=== PATIENT | female | born 1970 | race Caucasian/White ===

== ENCOUNTER 2016-11-19 13:44 | Emergency (ER) | payer OTHER, BC ==
[2016-11-19 13:51] VITALS: BP 99/86
--- NOTE | 2016-11-19 14:14 | EDM.PDOC ---
{null, ED HPI GENERAL MEDICAL PROBLEM - General Chief Complaint: Back Pain or Injury Stated Complaint: WORK COMP / LOW BACK Time Seen by Provider: 11/19/16 14:00 Source of Information: Reports: Patient History Limitations: Reports: No Limitations - History of Present Illness INITIAL COMMENTS - FREE TEXT/NARRATIVE: patient comes emergency Department today with complaints of chronic back pain. She has been on the chronic pain management contract with a prescriber of [place] for the past couple of years for her chronic back pain that she has had since an injury at work in 2008. She has had some increased pain over the past couple of days. Her morphine 15 mg twice a day is not controlling her pain. She denies any injuries falls or acute episode worsening her pain. She states that the morphine this does not work as it has in the past. She denies any new numbness or tingling to her lower extremities. She denies any loss of bowel or bladder problems. She relates that her morphine prescription was refilled last week with her primary provider. Lower Back Pain Score (Numeric/FACES): 10 - Related Data Allergies Allergy/AdvReac Type Severity Reaction Status Date / Time acetaminophen [From Roxicet] Allergy Hives Verified 11/19/16 13:54 oxycodone HCl [From Roxicet] Allergy Hives Verified 11/19/16 13:54 prednisone Allergy Nausea and Verified 11/19/16 13:54 Vomiting propoxyphene napsylate Allergy Hives Verified 11/19/16 13:54 [From Darvocet-N 100] Sulfa (Sulfonamide Allergy Swelling Verified 11/19/16 13:54 Antibiotics) Home Meds: Home Meds Omeprazole [Prilosec] 20 mg PO DAILY 07/21/13 [History] PARoxetine [Paxil] 40 mg PO DAILY 07/21/13 [History] Acetaminophen [Tylenol Extra Strength] 1,000 mg PO Q4H PRN 09/14/13 [History] Morphine Sulfate 15 mg PO BID 11/19/16 [History] Past Medical History HEENT History: Reports: None Cardiovascular History: Reports: None Respiratory History: Reports: None Gastrointestinal History: Reports: GERD Genitourinary History: Reports: None 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 Musculoskeletal History: Reports: Back Pain, Chronic Neurological History: Reports: None Psychiatric History: Reports: Anxiety, Depression Endocrine/Metabolic History: Reports: None Hematologic History: Reports: None Immunologic History: Reports: None Oncologic (Cancer) History: Reports: None Dermatologic History: Reports: None - Infectious Disease History Infectious Disease History: Reports: None - Past Surgical History Head Surgeries/Procedures: Reports: None Social & Family History - Family History Family Medical History: Noncontributory - Tobacco Use Smoking Status *Q: Never Smoker Second Hand Smoke Exposure: No - Caffeine Use Caffeine Use: Reports: Coffee, Soda - Alcohol Use Days Per Week of Alcohol Use: 0 - Recreational Drug Use Recreational Drug Use: No - Living Situation & Occupation Living situation: Reports: ED ROS GENERAL - Review of Systems Review Of Systems: ROS reveals no pertinent complaints other than HPI. ED EXAM, UPPER BACK/NECK PAIN - Physical Exam Exam: See Below Exam Limited By: No Limitations General Appearance: Alert, WD/WN, No Apparent Distress Head Exam: Atraumatic, Normocephalic Neck Exam: Non-Tender, Full Range of Motion, Normal Alignment Cardiovascular/Respiratory: Regular Rate, Rhythm, No M/R/G, Normal Peripheral Pulses, Normal Breath Sounds, No Respiratory Distress GI/Abdominal: Normal Bowel Sounds, Soft, Non-Tender (Female) Exam: Deferred Rectal (Female) Exam: Deferred Extremities: Normal Inspection, Normal Range of Motion, Non-Tender, No Pedal Edema, Normal Capillary Refill Neurologic: No Motor/Sensory Deficits, Alert, Normal Mood/Affect, Oriented x 3 DTR: 2+: Patella (R), Patella (L), Achilles (R), Achilles (L) Psychiatric: Normal Affect, Normal Mood Skin Exam: Normal Color, Warm/Dry Course - Vital Signs Last Recorded V/S: Last Vital Signs Temp 35.8 C 11/19/16 13:50 Pulse 70 11/19/16 13:50 Resp 16 11/19/16 13:50 BP 99/86 11/19/16 13:50 Pulse Ox 98 11/19/16 13:50 - Re-Assessments/Exams Free Text/Narrative Re-Assessment/Exam: 11/19/16 14:29 as the patient admitted herself that she is in a chronic pain management contract out of [place] in that she is no acute injury I explained to her that in the acute setting in the emergency department we do not treat chronic pain. Especially with the current concerns over the overprescribing and misuse of narcotics in our region I do not feel that it is appropriate that I override her chronic pain contract and give her anything more for pain as she is complaining of worsening chronic pain without any acute injury or identifiable cause. I did review her PDMP for the state [facility] but it is quite clear that on a monthly basis she receives 60 tablets of morphine sulfate 15 mg by prescriber primarily in [place]. Her last filled prescription is 10/11/16 which was 60 tablets of morphine. She does tell me verbally that she received the identical prescription last week that she filled at her pharmacy here in [facility]. I did offer the patient non-narcotic medication such as Tylenol ibuprofen Toradol at this time for which she refused. She can try other nonpharmacologic means for her chronic pain management at home and she is to contact her primary pain management doctor on Sunday. She was understanding of this. Discharge instructions as below were explained to the patient she was comfortable with this plan and her questions are answered. Departure - Departure Time of Disposition: 14:00 Disposition: Home, Self-Care 01 Clinical Impression: Chronic pain syndrome Chronic back pain Qualifiers: Back pain location: low back pain Back pain laterality: unspecified Sciatica presence: unspecified whether sciatica present Qualified Code(s): M54.5 - Low back pain - Discharge Information Instructions: Chronic Back Pain Forms: ED Department Discharge Additional Instructions: Contact your chronic pain medicine provider on sunday to treat your chronic back pain. Return to the ED if acute or emergent conditions. Tylenol Ibuprofen Ice Heat stretches or other remidies that have worked for you in the past for your chronic pain. - Assessment/Plan Assessment:: Chronic back pain, with no acute injury. Chronic pain syndrome. Plan: Contact your chronic pain medicine provider on sunday to treat your chronic back pain. Return to the ED if acute or emergent conditions. Tylenol Ibuprofen Ice Heat stretches or other remidies that have worked for you in the past for your chronic pain. }
== END 2016-11-19 14:18 | disposition home or self-care (01) ==
LOC: DL.ED 13:44
DX: G89.4 Chronic pain syndrome (principal); M54.5 Low back pain; K21.9 Gastro-esophageal reflux disease without esophagitis; F41.9 Anxiety disorder, unspecified; F32.9 Major depressive disorder, single episode, unspecified; Z79.899 Other long term (current) drug therapy; Z88.6 Allergy status to analgesic agent; Z88.2 Allergy status to sulfonamides
CPT/HCPCS: 99283

== ENCOUNTER 2019-08-11 08:59 | Emergency (ER) | payer BC ==
--- NOTE | 2019-08-11 09:27 | EDM.PDOC ---
<Bang Zamora - Last Filed: 08/11/19 14:39> ED HPI GENERAL MEDICAL PROBLEM - General Chief Complaint: Chest Pain Stated Complaint: CHEST PAINS Time Seen by Provider: 08/11/19 09:22 Source of Information: Reports: Patient, RN, RN Notes Reviewed History Limitations: Reports: No Limitations - History of Present Illness INITIAL COMMENTS - FREE TEXT/NARRATIVE: states for the past 3 weeks to 1 month she has had mid-sternal chest pains. Had a stress test 2 weeks ago which was positive and "they found 3 spots in my heart that they think may be blockage." She is set up for an angiogram on the . States yesterday afternoon her chest pain got worse. States her was unable to give her ride here yesterday. Today she drove herself here. States she slept very little last night due to pain. Denies cold, cough, or recent illness. Movement makes discomfort worse. The pain is constant and does not relieve with rest. Patient states that her family has history of cardiac events. Her sister has a heart murmur, her uncle had a heart attack at 45 and , and her father had open heart surgery due to blockages at age of 60s-70s. Onset: Other (3-4 weeks ongoing) Duration: Constant Location: Reports: Chest Quality: Reports: Ache, Sharp Severity: Moderate Improves with: Reports: None Worsens with: Reports: None Associated Symptoms: Reports: Chest Pain, Shortness of Breath. Denies: Confusion, Cough, Diaphoresis, Fever/Chills, Headaches, Loss of Appetite, Nausea /Vomiting, Syncope - Related Data Allergies Allergy/AdvReac Type Severity Reaction Status Date / Time acetaminophen [From Roxicet] Allergy Hives Verified 11/19/16 13:54 oxycodone HCl [From Roxicet] Allergy Hives Verified 11/19/16 13:54 prednisone Allergy Nausea and Verified 11/19/16 13:54 Vomiting propoxyphene napsylate Allergy Hives Verified 11/19/16 13:54 [From Darvocet-N 100] Sulfa (Sulfonamide Allergy Swelling Verified 11/19/16 13:54 Antibiotics) Home Meds: Home Meds Omeprazole [Prilosec] 20 mg PO DAILY 07/21/13 [History] PARoxetine [Paxil] 40 mg PO DAILY 07/21/13 [History] Acetaminophen [Tylenol Extra Strength] 1,000 mg PO Q4H PRN 09/14/13 [History] metFORMIN HCl [Metformin HCl] 500 mg PO DAILY 08/11/19 [History] traZODone HCl [Trazodone HCl] 200 mg PO BEDTIME 08/11/19 [History] Past Medical History HEENT History: Reports: None Cardiovascular History: Reports: None Respiratory History: Reports: None Gastrointestinal History: Reports: GERD Genitourinary History: Reports: None 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 Musculoskeletal History: Reports: Back Pain, Chronic Neurological History: Reports: None Psychiatric History: Reports: Anxiety, Depression Endocrine/Metabolic History: Reports: None Hematologic History: Reports: None Immunologic History: Reports: None Oncologic (Cancer) History: Reports: None Dermatologic History: Reports: None - Infectious Disease History Infectious Disease History: Reports: None - Past Surgical History Head Surgeries/Procedures: Reports: None Social & Family History - Family History Family Medical History: Noncontributory - Caffeine Use Caffeine Use: Reports: Coffee, Soda - Living Situation & Occupation Living situation: Reports: ED ROS GENERAL - Review of Systems Review Of Systems: See Below Constitutional: Denies: Fever, Chills, Weakness, Fatigue Respiratory: Reports: Shortness of Breath. Denies: Wheezing, Cough, Sputum Cardiovascular: Reports: Chest Pain, Dyspnea on Exertion. Denies: Lightheadedness, Palpitations, Syncope Endocrine: Reports: No Symptoms GI/Abdominal: Denies: Abdominal Pain, Anorexia, Constipation, Diarrhea, Difficulty Swallowing, Nausea, Vomiting : Reports: No Symptoms Musculoskeletal: Reports: No Symptoms Skin: Reports: No Symptoms Neurological: Reports: No Symptoms Psychiatric: Reports: No Symptoms ED EXAM, GENERAL - Physical Exam Exam: See Below Exam Limited By: No Limitations General Appearance: Alert, WD/WN, Mild Distress Head: Atraumatic, Normocephalic Neck: Normal Inspection, Supple, Non-Tender, Full Range of Motion Respiratory/Chest: No Respiratory Distress, Lungs Clear, Normal Breath Sounds, No Accessory Muscle Use, Chest Non-Tender Cardiovascular: Normal Peripheral Pulses, Regular Rate, Rhythm, No Edema, No Gallop, No JVD, No Murmur, No Rub GI/Abdominal: Normal Bowel Sounds (Female) Exam: Deferred Rectal (Female) Exam: Deferred Extremities: Normal Inspection, Normal Range of Motion, Non-Tender, Normal Capillary Refill, No Pedal Edema Neurological: Alert, Oriented, CN II-XII Intact, Normal Cognition, Normal Gait, Normal Reflexes, No Motor/Sensory Deficits Psychiatric: Normal Affect, Normal Mood Skin Exam: Warm, Dry, Intact, Normal Color, No Rash Course - Vital Signs Last Recorded V/S: Last Vital Signs Temp 97 F 08/11/19 09:00 Pulse 89 08/11/19 12:50 Resp 18 08/11/19 09:00 BP 132/65 08/11/19 12:50 Pulse Ox 96 08/11/19 09:00 - Orders/Labs/Meds Orders: Active Orders 24 hr Category Date Time Status EKG 12 Lead [EKG Documentation Completion] [RC] STAT Care 08/11/19 09:06 Active EKG 12 Lead [EKG Documentation Completion] [RC] STAT Care 08/11/19 12:34 Active EKG Documentation Completion [RC] ROUTINE Care 08/11/19 13:30 Inactive Labs: Laboratory Tests 08/11/19 08/11/19 08/11/19 Range/Units 09:28 09:28 09:28 WBC 5.8 (5.0-10.0) 10^3/uL RBC 3.97 L (4.2-5.4) 10^6/uL Hgb 12.4 (12.0-16.0) g/dL Hct 37.1 (37.0-47.0) % MCV 93.5 D (80-100) fL MCH 31.2 (27.0-34.0) pg MCHC 33.4 (33.0-35.0) g/dL Plt Count 284 (150-450) 10^3/uL Neut % (Auto) 63.1 (42.2-75.2) % Lymph % (Auto) 27.0 (20.5-50.1) % Shelby % (Auto) 8.2 H (2-8) % Eos % (Auto) 1.2 (1.0-3.0) % Baso % (Auto) 0.5 (0.0-1.0) % D-Dimer, Quantitative < 100 (0-400) ng/mL Sodium 138 (135-145) mmol/L Potassium 4.1 (3.6-5.0) mmol/L Chloride 102 (101-111) mmol/L Carbon Dioxide 24.0 (21.0-31.0) mmol/L Anion Gap 16.1 BUN 14 (7-18) mg/dL Creatinine 0.7 (0.6-1.3) mg/dL Est Cr Clr Drug Dosing 88.44 mL/min Estimated GFR (MDRD) > 60 BUN/Creatinine Ratio 20.00 Glucose 156 H (74-105) mg/dL Calcium 9.4 (8.4-10.2) mg/dl Total Bilirubin 0.7 (0.2-1.0) mg/dL AST 32 (10-42) IU/L ALT 52 (10-60) IU/L Alkaline Phosphatase 47 (42-121) IU/L Troponin I < 0.02 (0.00-0.02) ng/ml Total Protein 7.3 (6.7-8.2) g/dl Albumin 4.3 (3.2-5.5) g/dl Globulin 3.0 Albumin/Globulin Ratio 1.43 08/11/19 Range/Units 13:30 WBC (5.0-10.0) 10^3/uL RBC (4.2-5.4) 10^6/uL Hgb (12.0-16.0) g/dL Hct (37.0-47.0) % MCV (80-100) fL MCH (27.0-34.0) pg MCHC (33.0-35.0) g/dL Plt Count (150-450) 10^3/uL Neut % (Auto) (42.2-75.2) % Lymph % (Auto) (20.5-50.1) % Shelby % (Auto) (2-8) % Eos % (Auto) (1.0-3.0) % Baso % (Auto) (0.0-1.0) % D-Dimer, Quantitative (0-400) ng/mL Sodium (135-145) mmol/L Potassium (3.6-5.0) mmol/L Chloride (101-111) mmol/L Carbon Dioxide (21.0-31.0) mmol/L Anion Gap BUN (7-18) mg/dL Creatinine (0.6-1.3) mg/dL Est Cr Clr Drug Dosing mL/min Estimated GFR (MDRD) BUN/Creatinine Ratio Glucose (74-105) mg/dL Calcium (8.4-10.2) mg/dl Total Bilirubin (0.2-1.0) mg/dL AST (10-42) IU/L ALT (10-60) IU/L Alkaline Phosphatase (42-121) IU/L Troponin I 0.03 H* (0.00-0.02) ng/ml Total Protein (6.7-8.2) g/dl Albumin (3.2-5.5) g/dl Globulin Albumin/Globulin Ratio Meds: Medications Discontinued Medications Generic Name Dose Route Start Last Admin Trade Name Freq PRN Reason Stop Dose Admin Acetaminophen 650 mg 08/11/19 12:55 08/11/19 13:04 Tylenol PO 08/11/19 12:56 Not Given NOW ONE Al Hydroxide/Mg Hydroxide 30 ml 08/11/19 12:55 08/11/19 13:05 Gi Cocktail PO 08/11/19 12:56 30 ml ONETIME ONE Administration Aspirin 324 mg 08/11/19 09:41 08/11/19 09:45 Aspirin PO 08/11/19 09:42 324 mg ONETIME ONE Administration Nitroglycerin 0.4 mg 08/11/19 12:33 08/11/19 12:42 Nitrostat SL 08/11/19 12:34 0.4 mg ONETIME ONE Administration Departure - Departure Time of Disposition: 14:39 Disposition: Home, Self-Care 01 Condition: Good Clinical Impression: Atypical chest pain Instructions: Nonspecific Chest Pain, [id number] Forms: ED Department Discharge Additional Instructions: Rx: Pepcid 20mg (Take in addition to Prilosec). Follow-up with Dr. Swann as scheduled for further cardiac testing. If symptoms come back or worsen, follow-up sooner or return to the ED for evaluation. Sepsis Event Note - Evaluation Sepsis Screening Result: No Definite Risk - Focused Exam Vital Signs: Vital Signs Temp Pulse Resp BP BP Pulse Ox 08/11/19 12:50 89 132/65 08/11/19 12:42 124/60 08/11/19 09:00 97 F 83 18 95/81 96 Date Exam was Performed: 08/11/19 Time Exam was Performed: 14:39 - My Orders Last 24 Hours: My Active Orders 08/11/19 09:06 EKG 12 Lead [EKG Documentation Completion] [RC] STAT 08/11/19 12:34 EKG 12 Lead [EKG Documentation Completion] [RC] STAT 08/11/19 13:30 EKG Documentation Completion [RC] ROUTINE - Assessment/Plan Last 24 Hours: My Active Orders 08/11/19 09:06 EKG 12 Lead [EKG Documentation Completion] [RC] STAT 08/11/19 12:34 EKG 12 Lead [EKG Documentation Completion] [RC] STAT 08/11/19 13:30 EKG Documentation Completion [RC] ROUTINE <Thai Nathanian - Last Filed: 08/11/19 14:47> Past Medical History Endocrine/Metabolic History: Reports: Diabetes, Type II, Obesity/BMI 30+ Social & Family History - Family History Cardiac: Reports: CAD, Heart Murmur, Hypertension, [place] EKG INTERPRETATION EKG Date: 08/11/19 Time: 09:16 Rhythm: Other (SR) [place]: Normal P-Wave: Present QRS: Normal ST-T: Other (Nonspecific T wave inversion in V1) QT: Normal Comparison: NA - No Prior EKG Course - Radiology Interpretation Free Text/Narrative:: [facility] [place] [facility] Final Radiology Report Call: [phone] assistance Online chat: [email or web address] Name: BHAVANI JACKSON Age: 48Years F Date: 08/11/2019 SSN: -- : [id number] Study: XR CHEST 1 VIEW FRONTAL Requesting Physician: THAI NTAHAN Images: 1 Addl Studies: Provided Clinical History: chest pain Contrast: Contrast Medium: Contrast Amount: Contrast Method: CONFIDENTIALITY STATEMENT This report is intended only for use by the referring physician, and only in accordance with law. If you received this in error, call [phone]. Page 1 of 1 PROCEDURE INFORMATION: Exam: XR Chest, 1 View Exam date and time: 08/11/2019 9:31 AM Age: 48 years old Clinical indication: Chest pain; Type not specified TECHNIQUE: Imaging protocol: XR of the chest Views: 1 view. COMPARISON: No relevant prior studies available. FINDINGS: Lungs: Unremarkable. No consolidation. Pleural space: Unremarkable. No pleural effusion. No pneumothorax. Heart/Mediastinum: Unremarkable. No cardiomegaly. Bones/joints: Unremarkable. IMPRESSION: No evidence for acute pulmonary disease. Thank you for allowing us to participate in the care of your patient. Dictated and Authenticated by: Sarbjit Apodaca MD 08/11/2019 10:13 AM Central Time ([place] & [place]) - Re-Assessments/Exams Free Text/Narrative Re-Assessment/Exam: 08/11/19 I personally performed or re-performed the physical examination and medical decision making. I have verified all student documentation or findings, including history, physical exam and/or medical decision making. Free Text/Narrative Re-Assessment/Exam: 08/11/19 10:17 Pt with negative initial CP evaluation, but with abnormal cardiac stress test 3 weeks ago and elective cardiac cath. scheduled for about 2 weeks from now. Hx DM , obesity, and family Hx of CAD. Pt will be placed as an extended ER status on telemetry with a repeat troponin and EKG four hours from the initial lab and EKG. 08/11/19 14:[address] Swann (cardiology) via [employer]. He advises the pt's stress test was likely negative, but due to a few areas that are most likely technical issues, it calls into question a weak positive study. Therefore she is scheduled for an elective angiogram. After review of today's exam, lab results and EKGs Dr. Swann advises the pt may be discharged home with reassurance that it is ok to keep her angiogram appointment as scheduled. Sepsis Event Note - Focused Exam Date Exam was Performed: 08/11/19 Time Exam was Performed: 14:42
[2019-08-11] MEDS ORDERED: Aspirin 81 MG Tab.Chew PO ONE (09:41)
[2019-08-11 09:56] LABS: ANION GAP 16.1; CHLORIDE,CL 102 mmol/L (101-111); SODIUM,NA 138 mmol/L (135-145)
[2019-08-11] MEDS ORDERED: Nitroglycerin 0.4 MG Tab.SL SL ONE (12:33)
[2019-08-11 12:51] VITALS: BP 132/65; PULSE 89
[2019-08-11] MEDS ORDERED: Acetaminophen 325 MG Tab PO ONE (12:55)
[2019-08-11] MEDS ORDERED: GI Cocktail Oral Solution 30 ML PO ONE (12:55)
== END 2019-08-11 14:56 | disposition home or self-care (01) ==
LOC: DL.ED 08:59
DX: R07.89 Other chest pain (principal); E11.9 Type 2 diabetes mellitus without complications; E66.9 Obesity, unspecified; K21.9 Gastro-esophageal reflux disease without esophagitis; F41.9 Anxiety disorder, unspecified; F32.9 Major depressive disorder, single episode, unspecified; Z88.2 Allergy status to sulfonamides; Z88.8 Allergy status to other drugs, medicaments and biological substances; Z79.899 Other long term (current) drug therapy; Z79.84 Long term (current) use of oral hypoglycemic drugs
CPT/HCPCS: 36415; 71045; 80053; 84484; 85025; 85379; 93005; 99285; A9270

== ENCOUNTER 2019-09-30 09:56 | Emergency (ER) | payer BC ==
[2019-09-30 10:06] VITALS: BP 146/77; PULSE 78
--- NOTE | 2019-09-30 10:09 | EDM.PDOC ---
ED HPI GENERAL MEDICAL PROBLEM - General Chief Complaint: Laceration Stated Complaint: CUT FINGER LEFT HAND Time Seen by Provider: 09/30/19 10:05 Source of Information: Reports: Patient, Old Records, RN, RN Notes Reviewed History Limitations: Reports: No Limitations - History of Present Illness INITIAL COMMENTS - FREE TEXT/NARRATIVE: Pt presents to ER with c/o laceration to left thumb with a kitchen knife just prior to arrival. Denies any other injury. Tetanus vaccine is up to date. Onset: Today, Sudden Duration: Constant Location: Reports: Upper Extremity, Left Quality: Reports: Ache Severity: Moderate Improves with: Reports: None Worsens with: Reports: None Associated Symptoms: Reports: No Other Symptoms Left Pain Score (Numeric/FACES): 2 - Related Data Allergies Allergy/AdvReac Type Severity Reaction Status Date / Time acetaminophen [From Roxicet] Allergy Hives Verified 09/30/19 10:09 oxycodone HCl [From Roxicet] Allergy Hives Verified 09/30/19 10:09 prednisone Allergy Nausea and Verified 09/30/19 10:09 Vomiting propoxyphene napsylate Allergy Hives Verified 09/30/19 10:09 [From Darvocet-N 100] Sulfa (Sulfonamide Allergy Swelling Verified 09/30/19 10:09 Antibiotics) Home Meds: Home Meds Omeprazole [Prilosec] 20 mg PO DAILY 07/21/13 [History] PARoxetine [Paxil] 40 mg PO DAILY 07/21/13 [History] Acetaminophen [Tylenol Extra Strength] 1,000 mg PO Q4H PRN 09/14/13 [History] metFORMIN HCl [Metformin HCl] 500 mg PO DAILY 08/11/19 [History] traZODone HCl [Trazodone HCl] 200 mg PO BEDTIME 08/11/19 [History] Past Medical History HEENT History: Reports: None Cardiovascular History: Reports: None Respiratory History: Reports: None Gastrointestinal History: Reports: GERD Genitourinary History: Reports: None 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 Musculoskeletal History: Reports: Back Pain, Chronic Neurological History: Reports: None Psychiatric History: Reports: Anxiety, Depression Endocrine/Metabolic History: Reports: Diabetes, Type II, Obesity/BMI 30+ Hematologic History: Reports: None Immunologic History: Reports: None Oncologic (Cancer) History: Reports: None Dermatologic History: Reports: None - Infectious Disease History Infectious Disease History: Reports: None - Past Surgical History Head Surgeries/Procedures: Reports: None Social & Family History - Family History Family Medical History: Noncontributory Cardiac: Reports: CAD, Heart Murmur, Hypertension, [place] - Caffeine Use Caffeine Use: Reports: Coffee, Soda - Living Situation & Occupation Living situation: Reports: ED ROS GENERAL - Review of Systems Review Of Systems: Comprehensive ROS is negative, except as noted in HPI. ED EXAM, SKIN/RASH Exam: See Below Exam Limited By: No Limitations General Appearance: Alert, WD/WN, No Apparent Distress, Obese Respiratory/Chest: No Respiratory Distress Cardiovascular: Normal Peripheral Pulses Extremities: Normal Range of Motion, Normal Capillary Refill, Other (0.6cm laceration to depth of subcutaneous tissue at left thumb, no active bleeding, no FB, no tendon injury.) Neurological: Alert, Oriented, No Motor/Sensory Deficits Psychiatric: Normal Mood Skin: Warm, Dry, Normal Color ED SKIN PROCEDURES - Laceration/Wound Repair Left Digit - 1st (Thumb) Appearance: Subcutaneous Distal NVT: Neuro & Vascular Intact, No Tendon Injury Anesthetic Type: Local Local Anesthesia - Lidocaine (Xylocaine): 1% Plain Local Anesthetic Volume: 5cc Skin Prep: Chlorhexidine (Hibiciens), Saline, Sterile Drape Saline Irrigation (cc's): 100 Exploration/Debridement/Repair: Wound Explored, In a Bloodless Field, Explored to Base, Minimal Debridement, Minimally Undermined Closed with: Sutures Lac/Wound length In cm: 0.6 Suture Size: 4-0 # of Sutures: 3 Drain Placement: No Sterile Dressing Applied: Nurse Tetanus Status Addressed: Yes Complications: No Course - Vital Signs Last Recorded V/S: Last Vital Signs Temp 95.9 F L 09/30/19 10:05 Pulse 78 09/30/19 10:05 Resp 20 09/30/19 10:05 BP 146/77 H 09/30/19 10:05 Pulse Ox 95 09/30/19 10:05 - Orders/Labs/Meds Meds: Medications Discontinued Medications Generic Name Dose Route Start Last Admin Trade Name Freq PRN Reason Stop Dose Admin Bacitracin 1 dose 09/30/19 10:10 Bacitracin Oint 1 Gm TOP 09/30/19 10:11 ONETIME ONE Lidocaine HCl 30 ml 09/30/19 10:10 Xylocaine-Mpf 1% INJECT 09/30/19 10:11 ONETIME ONE Departure - Departure Time of Disposition: 10:26 Disposition: Home, Self-Care 01 Condition: Good Clinical Impression: Laceration of left thumb Qualifiers: Encounter type: initial encounter Damage to nail status: without damage Foreign body presence: without foreign body Qualified Code(s): S61.012A - Laceration without foreign body of left thumb without damage to nail, initial encounter - Discharge Information *PRESCRIPTION DRUG MONITORING PROGRAM REVIEWED*: Not Applicable *COPY OF PRESCRIPTION DRUG MONITORING REPORT IN PATIENT TIANNA: Not Applicable Instructions: Laceration Care, Adult Forms: ED Department Discharge Additional Instructions: Keep laceration site at left thumb clean and dry. Follow up in clinic in 7 to 10 days for suture removal. Sepsis Event Note - Focused Exam Vital Signs: Vital Signs Temp Pulse Resp BP Pulse Ox 09/30/19 10:05 95.9 F L 78 20 146/77 H 95 Date Exam was Performed: 09/30/19 Time Exam was Performed: 10:26
[2019-09-30] MEDS ORDERED: Lidocaine 1% 30 ML SDV INJECT ONE (10:10)
[2019-09-30] MEDS ORDERED: Bacitracin Oint 1 GM U/D Packet TOP ONE (10:10)
== END 2019-09-30 10:32 | disposition home or self-care (01) ==
LOC: DL.ED 09:56
DX: S61.012A Laceration without foreign body of left thumb without damage to nail, initial encounter (principal); K21.9 Gastro-esophageal reflux disease without esophagitis; F41.9 Anxiety disorder, unspecified; F32.9 Major depressive disorder, single episode, unspecified; E11.9 Type 2 diabetes mellitus without complications; E66.9 Obesity, unspecified; Z68.33 Body mass index [BMI] 33.0-33.9, adult; Z88.8 Allergy status to other drugs, medicaments and biological substances; Z88.5 Allergy status to narcotic agent; Z88.2 Allergy status to sulfonamides; Z79.84 Long term (current) use of oral hypoglycemic drugs; Z79.899 Other long term (current) drug therapy; W26.0XXA Contact with knife, initial encounter
CPT/HCPCS: 12001; 99282; J2001

== ENCOUNTER 2020-01-15 10:32 | Emergency (ER) | payer BC ==
[2020-01-15 10:44] VITALS: BP 140/72; PULSE 76
[2020-01-15] MEDS ORDERED: Sodium Chloride 0.9% 1,000 ML IV ONE (11:06)
[2020-01-15] MEDS ORDERED: Ketorolac 30 MG/ML SDV IVPUSH ONE (11:06)
[2020-01-15] MEDS ORDERED: Ondansetron 4 MG/2 ML SDV IVPUSH ONE (11:07)
[2020-01-15] MEDS ORDERED: diphenhydrAMINE 50 MG/ML SDV IVPUSH ONE (11:08)
--- NOTE | 2020-01-15 12:08 | EDM.PDOC ---
ED HPI GENERAL MEDICAL PROBLEM - General Chief Complaint: Headache Stated Complaint: CLINIC TOLD HER TO COME ER Time Seen by Provider: 01/15/20 11:00 - History of Present Illness INITIAL COMMENTS - FREE TEXT/NARRATIVE: 49 year old female who presents to the ER with complaints of generalized headache that began one day ago. Patient reports the headache came on suddenly. She admits to a history of headaches. She also admits neck pain since the onset of headache. She also have a history of neck pain. She denies any fever but admits to chills yesterday. She reports she is on antibiotics for left eye cellulitis. She has tried ibuprofen once for her headache with no relief. She reports photophobia and nausea but no vomiting. No change in neurology status. No history of stroke, head or trauma at this time. 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 Headache Pain Score (Numeric/FACES): 6 - Related Data Allergies Allergy/AdvReac Type Severity Reaction Status Date / Time acetaminophen [From Roxicet] Allergy Hives Verified 01/15/20 10:41 oxycodone HCl [From Roxicet] Allergy Hives Verified 01/15/20 10:41 prednisone Allergy Nausea and Verified 01/15/20 10:41 Vomiting propoxyphene napsylate Allergy Hives Verified 01/15/20 10:41 [From Darvocet-N 100] Sulfa (Sulfonamide Allergy Swelling Verified 01/15/20 10:41 Antibiotics) Home Meds: Home Meds Omeprazole [Prilosec] 20 mg PO DAILY 07/21/13 [History] PARoxetine [Paxil] 40 mg PO DAILY 07/21/13 [History] Acetaminophen [Tylenol Extra Strength] 1,000 mg PO Q4H PRN 09/14/13 [History] metFORMIN HCl [Metformin HCl] 500 mg PO DAILY 08/11/19 [History] traZODone HCl [Trazodone HCl] 200 mg PO BEDTIME 08/11/19 [History] Past Medical History HEENT History: Reports: Cataract Cardiovascular History: Reports: High Cholesterol Respiratory History: Reports: None Gastrointestinal History: Reports: GERD Genitourinary History: Reports: None 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 Musculoskeletal History: Reports: Back Pain, Chronic Neurological History: Reports: None Psychiatric History: Reports: Anxiety, Depression Endocrine/Metabolic History: Reports: Diabetes, Type II, Obesity/BMI 30+ Hematologic History: Reports: None Immunologic History: Reports: None Oncologic (Cancer) History: Reports: None Dermatologic History: Reports: None - Infectious Disease History Infectious Disease History: Reports: None - Past Surgical History Head Surgeries/Procedures: Reports: None Social & Family History - Family History Family Medical History: Noncontributory Cardiac: Reports: CAD, Heart Murmur, Hypertension, NM - Tobacco Use Smoking Status *Q: Never Smoker Second Hand Smoke Exposure: No - Caffeine Use Caffeine Use: Reports: None - Recreational Drug Use Recreational Drug Use: No - Living Situation & Occupation Living situation: Reports: ED ROS GENERAL - Review of Systems Review Of Systems: Comprehensive ROS is negative, except as noted in HPI. - Physical Exam Exam: See Below Exam Limited By: No Limitations General Appearance: Alert, Moderate Distress Eye Exam: Bilateral Eye: EOMI, PERRL Ears: Normal External Exam, Normal Canal, Hearing Grossly Normal, Normal TMs Nose: Normal Inspection, Normal Mucosa, No Blood Throat/Mouth: Normal Inspection, Normal Lips, Normal Teeth, Normal Gums, Normal Oropharynx, Normal Voice, No Airway Compromise Head Exam: Atraumatic, Normocephalic Neck: Normal Inspection, Supple, Non-Tender, Full Range of Motion. No: Tender Lateral, Tender Midline Respiratory/Chest: No Respiratory Distress, Lungs Clear, Normal Breath Sounds, No Accessory Muscle Use, Chest Non-Tender Cardiovascular: Normal Peripheral Pulses, Regular Rate, Rhythm, No Edema, No Gallop, No JVD, No Murmur, No Rub GI/Abdominal: Normal Bowel Sounds, Soft, Non-Tender, No Organomegaly, No Distention, No Abnormal Bruit, No Mass (Female) Exam: Deferred Rectal (Female) Exam: Deferred Neuro Exam (Abbreviated): Alert, Oriented, CN II-XII Intact, Normal Cognition, Normal Gait, No Motor/Sensory Deficits, Other (headaches) Extremities: Normal Inspection, Normal Range of Motion, Non-Tender, No Pedal Edema, Normal Capillary Refill Psychiatric: Anxious Skin Exam: Warm, Intact Course - Vital Signs Last Recorded V/S: Last Vital Signs Temp 96.4 F L 01/15/20 10:41 Pulse 76 01/15/20 10:41 Resp 14 01/15/20 10:41 BP 140/72 01/15/20 10:41 Pulse Ox 97 01/15/20 10:41 - Orders/Labs/Meds Meds: Medications Discontinued Medications Generic Name Dose Route Start Last Admin Trade Name Maryse PRN Reason Stop Dose Admin Diphenhydramine HCl 25 mg 01/15/20 11:08 01/15/20 11:16 Benadryl IVPUSH 01/15/20 11:09 25 mg ONETIME ONE Administration Sodium Chloride 1,000 mls @ 1,000 mls/hr 01/15/20 11:06 01/15/20 11:16 Normal Saline IV 01/15/20 12:05 1,000 mls/hr .BOLUS ONE Administration Ketorolac Tromethamine 30 mg 01/15/20 11:06 01/15/20 11:17 Toradol IVPUSH 01/15/20 11:07 30 mg ONETIME ONE Administration Ondansetron HCl 4 mg 01/15/20 11:07 01/15/20 11:17 Zofran IVPUSH 01/15/20 11:08 4 mg ONETIME ONE Administration - Re-Assessments/Exams Free Text/Narrative Re-Assessment/Exam: Patient presents to the ER with complaints of a headache. She was given a Migraine cocktail with significant relief. Follow up with PCP Departure - Departure Time of Disposition: 12:29 Disposition: Home, Self-Care 01 Condition: Fair Clinical Impression: Tension-type headache - Discharge Information Instructions: Tension Headache, Adult, [id number] Forms: ED Department Discharge Additional Instructions: Encouraged her to push fluids and rest. Avoid stressful situations Follow up with PCP. Sepsis Event Note (ED) - Evaluation Sepsis Screening Result: No Definite Risk - Focused Exam Vital Signs: Vital Signs Temp Pulse Resp BP Pulse Ox 01/15/20 10:41 96.4 F L 76 14 140/72 97
== END 2020-01-15 12:41 | disposition home or self-care (01) ==
LOC: DL.ED 10:32
DX: G44.209 Tension-type headache, unspecified, not intractable (principal); E11.9 Type 2 diabetes mellitus without complications; F41.9 Anxiety disorder, unspecified; F32.9 Major depressive disorder, single episode, unspecified; K21.9 Gastro-esophageal reflux disease without esophagitis; E66.9 Obesity, unspecified; Z68.27 Body mass index [BMI] 27.0-27.9, adult; Z88.5 Allergy status to narcotic agent; Z88.8 Allergy status to other drugs, medicaments and biological substances; Z88.2 Allergy status to sulfonamides; Z79.899 Other long term (current) drug therapy
CPT/HCPCS: 96374; 96375; 99283; J1200; J1885; J2405; J7030

== ENCOUNTER 2020-04-08 06:08 | Day surgery (SDC) | payer BC ==
[2020-04-08] MEDS ORDERED: Propofol 200 MG/20 ML SDV IV ONE ×2 (06:09)
[2020-04-08] MEDS ORDERED: Dextrose 5%-0.45% NaCl 1,000 ML IV SCH (06:45)
[2020-04-08] MEDS ORDERED: Sodium Chloride 0.9% 1,000 ML IV SCH (06:45)
[2020-04-08 09:49] VITALS: BP 91/51; PULSE 65
--- NOTE | 2020-04-08 10:33 | OR ---
DATE: 04/08/2020 PROCEDURE: Esophagogastroduodenoscopy and multiple pinch biopsies. INSTRUMENT USED: [id number]-HQ190 Olympus video panendoscope. PREMEDICATIONS: No oral or topical anesthesia used. Premedications provided by [facility]iology [facility]. INDICATION: The patient with persistent multiple abdominal symptoms, including chronic diarrhea, unexplained and not responsive to medical measures, on high- dose PPI. Esophagogastroduodenoscopy is performed for detection of any active erosive lesions, [place] esophagus and/or malignancy also under consideration, H pylori status to be determined, small bowel biopsies to be obtained for celiac disease, endoscopic hemostasis therapy if needed. PROCEDURE IN DETAIL: The scope was passed with ease. Adequate visualization of the esophagus was made from proximal to distal areas. No upper esophageal lesions identified. No distal esophageal stricture. No uphill or downhill esophageal varices. No T[place]a-Jackson tear. No evidence of erosive esophagitis by [place] criteria. No esophageal polyp or tumor mass identified. Z-line was seen at around 39 cm distal to the oral verge, configuration consistent with grade 1 by ZAP classification. No proximal gastric varices noted. Gastric fundus examination by retroflexion showed no polypoid lesions. No gastric ulcer, malignant mass, or vascular ectasia identified. Duodenal bulb showed no ulcer. Visualized second part of the duodenum was unremarkable. Multiple pinch biopsies, 4 in number, were taken from different areas of the second part of the duodenum and tissues were also obtained from the duodenal bulb at 9 and 12 o'clock positions and sent for any histopathologic evidence of celiac disease. Multiple pinch biopsies were also obtained from the gastric antrum and proximal body and sent for PyloriTek test for H pylori and histopathology. No bleeding was noted from any of the visualized areas at the completion of examination. Photographs were taken of the duodenal bulb, gastric antrum, fundus, and distal esophagus. IMPRESSION: Normal study. The patient tolerated the procedure well. [facility] /[id number]
== END 2020-04-08 09:55 | disposition home or self-care (01) ==
LOC: DL.ENDO 06:08
PROVIDERS: ATTEND Internal Medicine Gastroenterology
DX: K52.9 Noninfective gastroenteritis and colitis, unspecified (principal); K21.9 Gastro-esophageal reflux disease without esophagitis; E66.09 Other obesity due to excess calories; E11.9 Type 2 diabetes mellitus without complications; F32.9 Major depressive disorder, single episode, unspecified; Z79.899 Other long term (current) drug therapy; Z87.891 Personal history of nicotine dependence; Z68.32 Body mass index [BMI] 32.0-32.9, adult
CPT/HCPCS: 00813; 43239; 87077; J2704; J7030

== ENCOUNTER 2020-04-13 05:41 | Day surgery (SDC) | payer BC ==
[2020-04-13] MEDS ORDERED: fentaNYL 100 MCG/2 ML SDV IV ONE ×5 (05:42→07:09)
[2020-04-13] MEDS ORDERED: Midazolam 1 MG/ML 2 ML SDV IV ONE ×7 (05:42→07:04)
[2020-04-13] MEDS ORDERED: Midazolam 1 MG/ML 2 ML SDV ONE (06:15)
[2020-04-13] MEDS ORDERED: fentaNYL 100 MCG/2 ML SDV ONE (06:15)
[2020-04-13] MEDS ORDERED: Dextrose 5%-0.45% NaCl 1,000 ML IV SCH ×2 (06:45→07:45)
[2020-04-13] MEDS ORDERED: Sodium Chloride 0.9% 10 ML Syringe FLUSH PRN (07:42)
[2020-04-13 07:46] VITALS: BP 107/60; PULSE 70
--- NOTE | 2020-04-13 16:32 | OR ---
DATE: 04/13/2020 PROCEDURE: Total colonoscopy, terminal ileoscopy, narrow band imaging, and multiple pinch biopsies. INSTRUMENT USED: [id number]-[id number] Olympus video colonoscope. PREMEDICATIONS: Fentanyl 150 mcg intravenous, Versed 4 mg intravenous. Nasal O2 cannula. The procedure was done under pulse oximetry, BP recording, and computer support specialist instructor. INDICATION: The patient with abdominal pain and chronic diarrhea, unexplained, and not responsive to medical measures. Colonoscopic examination is done for detection of any polypoid lesions and removal, biopsies to be obtained for microscopic colitis, endoscopic hemostasis therapy if needed. DESCRIPTION OF PROCEDURE: Initial rectal exam was unremarkable. Rigid anoscopy was normal. The colonoscope was passed with ease up to the ileocecal junction to visualize the normal-appearing terminal ileum, NBI views were obtained, multiple pinch biopsies were obtained from the terminal ileum, and sent for histopathology. Photographs were also taken of the normal-appearing cecum. No bleeding was noted from any of the visualized areas at the completion of the examination. The bowel preparation was found to be adequate, [place] scale 2 in the right colon, 3 in transverse and left colon, total score 8. No stricture. No vascular ectasia. No large isolated ulcerations seen. No evidence of diffuse inflammatory bowel disease in the form of friability, contact bleeding, or ulcerations. No polyp or tumor mass identified. Probing the proximal sides of folds and flexures using adequate distention and clearing of the stool material, withdrawal of the scope was made. Multiple pinch biopsies were obtained from the normal-appearing mucosa of the mid transverse colon, descending colon, and retrosigmoid, and sent for any histopathologic evidence of microscopic colitis. No bleeding was noted from any of the visualized areas at the completion of examination. IMPRESSION: Normal study. The patient tolerated the procedure well. [facility] /[id number]
== END 2020-04-13 09:00 | disposition home or self-care (01) ==
LOC: DL.ENDO 05:41
PROVIDERS: ATTEND Internal Medicine Gastroenterology
DX: R19.7 Diarrhea, unspecified (principal); E66.09 Other obesity due to excess calories; E11.9 Type 2 diabetes mellitus without complications; F41.1 Generalized anxiety disorder; G89.4 Chronic pain syndrome; K21.9 Gastro-esophageal reflux disease without esophagitis; Z98.891 History of uterine scar from previous surgery; Z88.9 Allergy status to unspecified drugs, medicaments and biological substances; Z68.33 Body mass index [BMI] 33.0-33.9, adult
CPT/HCPCS: 45380; J2250; J3010; J7042

== ENCOUNTER 2021-09-26 06:51 | Day surgery (SDC) | payer BC ==
[~2021-09-26 06:51] MED LIST: Dextrose 5%-0.45% NaCl 1,000 ML IV SCH; Midazolam 1 MG/ML 2 ML SDV ONE; Sodium Chloride 0.9% 10 ML Syringe FLUSH PRN; Sodium Chloride 0.9% 10 ML Syringe FLUSH SCH; fentaNYL 100 MCG/2 ML SDV ONE
[2021-09-26] MEDS ORDERED: Midazolam 1 MG/ML 2 ML SDV IV ONE ×7 (06:52→08:14)
[2021-09-26] MEDS ORDERED: fentaNYL 100 MCG/2 ML SDV IV ONE ×5 (06:52→08:16)
[2021-09-26 12:20] VITALS: BP 111/70; PULSE 70
== END 2021-09-26 09:50 | disposition home or self-care (01) ==
LOC: DL.ENDO 06:51
PROVIDERS: ATTEND Internal Medicine Gastroenterology
DX: K62.5 Hemorrhage of anus and rectum (principal); K64.8 Other hemorrhoids; E66.09 Other obesity due to excess calories; N20.0 Calculus of kidney; E55.9 Vitamin D deficiency, unspecified; E11.9 Type 2 diabetes mellitus without complications; F41.1 Generalized anxiety disorder; G89.4 Chronic pain syndrome; E53.8 Deficiency of other specified B group vitamins; M19.90 Unspecified osteoarthritis, unspecified site; F32.A Depression, unspecified; Z98.49 Cataract extraction status, unspecified eye; Z90.89 Acquired absence of other organs; Z98.890 Other specified postprocedural states; Z86.69 Personal history of other diseases of the nervous system and sense organs; Z68.30 Body mass index [BMI] 30.0-30.9, adult; Z90.711 Acquired absence of uterus with remaining cervical stump
CPT/HCPCS: 45378; J2250; J3010; J7042

== ENCOUNTER 2024-11-06 05:16 | Day surgery (SDC) | payer BC ==
[2024-11-06] MEDS ORDERED: Propofol 200 MG/20 ML SDV IV ONE (05:17)
[2024-11-06] MEDS ORDERED: Ketamine 500 mg/10 ML MDV IV ONE (05:17)
[2024-11-06] MEDS ORDERED: dexmedeTOMIDine HCl 200 MCG/2 ML SDV IV ONE (05:17)
[2024-11-06] MEDS ORDERED: Glycopyrrolate 0.2 MG/ML 2 ML SDV IV ONE (05:17)
[2024-11-06] MEDS: Lactated Ringers 1,000 ML IV SCH (05:42)
[2024-11-06] MEDS ORDERED: Ketamine 500 mg/10 ML MDV ONE (05:51)
[2024-11-06] MEDS ORDERED: Propofol 200 MG/20 ML SDV ONE (05:52)
[2024-11-06] MEDS ORDERED: dexmedeTOMIDine HCl 200 MCG/2 ML SDV ONE (05:52)
[2024-11-06 08:10] VITALS: BP 94/61; PULSE 79
== END 2024-11-06 08:28 | disposition home or self-care (01) ==
LOC: DL.ENDO 05:16
PROVIDERS: ATTEND Internal Medicine Gastroenterology
DX: R10.13 Epigastric pain (principal); E11.9 Type 2 diabetes mellitus without complications
CPT/HCPCS: 43239; J7120; 00731; J2704; J3490